=== PATIENT | male | born 1955 | race Caucasian/White ===

== ENCOUNTER 2016-08-10 17:33 | Emergency (ER) | payer OTHER ==
[2016-08-10 17:45] LABS: EOSINOPHIL (%) 3.2 % (0-5); EOSINOPHIL COUNT 0.2 K/uL (0-0.3); HEMATOCRIT 40.3 % (38.0-50.0); IMMATURE GRANULOCYTE (%) 0.8 % (0.0-0.7); IMMATURE GRANULOCYTE COUNT 0.5 K/uL; LYMPHOCYTE COUNT 2.6 K/uL (1.0-2.8); MCH 29.7 PG (29.0-34.0); MCHC 36.7 G/DL (30.0-36.0); MCV 80.9 FL (86-99); MEAN PLAT.VOLUME 9.6 uM^3 (9.0-12.4); MONOCYTE (%) 8.7 % (3-12); MONOCYTE COUNT 0.6 K/uL (0-0.8); NEUTROPHIL COUNT 2.8 K/uL (1.8-6.4); PLATELET COUNT 176 K/uL (156-360); RBC DIS.WIDTH-CV 12.4 % (11.8-14.6); RBC DIS.WIDTH-SD 35.4 % (39-53); RED BLOOD COUNT 4.98 M/uL (4.00-5.50); WHITE BLOOD COUNT 6.3 K/uL (4.1-10.2)
[2016-08-10 17:57] LABS: AMYLASE 72 IU/L (1-118); CHLORIDE 103 mEq/L (99-109); POTASSIUM 3.7 mEq/L (3.7-5.4); SODIUM 139 mEq/L (136-147)
[2016-08-10 17:59] LABS: GLUCOSE 160 mg/dL (70-99)
[2016-08-10 18:00] LABS: ANION GAP 12 MEQ/L (2-14)
[2016-08-10 18:02] LABS: SERUM ETHYL ALCOHOL < 10 mg/dL
[2016-08-10 18:03] LABS: UREA NITROGEN (BUN) 13 mg/dL (9-23)
[2016-08-10 18:05] LABS: LIPASE 78 U/L (1.0-51.0)
[2016-08-10 18:08] LABS: GFR ESTIMATE (CALCULATED) > 59 mL/min/
[2016-08-10 18:26] LABS: TROP-I INTERPRETATION NEGATIVE; TROPONIN-I < 0.01 ng/mL (0.0-0.30)
[2016-08-10 21:14] LABS: ADD MIUA? NO; BILIRUBIN NEGATIVE; BLOOD NEGATIVE; COLOR YELLOW ((YELLOW)); GLUCOSE (STRIP) NEGATIVE; KETONES NEGATIVE; LEUKOCYTES NEGATIVE; NITRITE NEGATIVE; PROTEIN (STRIP) NEGATIVE; SPECIFIC GRAVITY 1.033 (1.000-1.030); UCUL ADDED? NO; UROBILINOGEN 0.2 MG/DL (0.2-1.0)
[2016-08-10 21:29] LABS: AMPHETAMINE NEGATIVE (500 ng/mL); BARBITURATES NEGATIVE (200 ng/mL); BENZODIAZEPINES NEGATIVE (150 ng/mL); COCAINE NEGATIVE (150 ng/mL); INTERNAL CONTROLS VALID? YES; METHADONE NEGATIVE (200 ng/mL); METHAMPHETAMINE NEGATIVE (500 ng/mL); OPIATES (MORPHINE) NEGATIVE (100 ng/mL); OXYCODONE NEGATIVE (100 ng/mL); PHENCYCLIDINE NEGATIVE (25 ng/mL); PROPOXYPHENE NEGATIVE (300 ng/mL); THC CANNABINOIDS NEGATIVE (50 ng/mL); TRICYCLIC ANTIDEPRESSANTS NEGATIVE (300 ng/mL)
[2016-08-10] MEDS ORDERED: MOTRIN600 MG PO (22:29)
[2016-08-10] MEDS ORDERED: PERCOCET 5/31 TABLET PO (22:29)
== END 2016-08-10 23:02 | disposition home or self-care (01) ==
LOC: TRA 17:33
PROVIDERS: Emergency Medicine
DX: S20.219A Contusion of unspecified front wall of thorax, initial encounter (principal); S09.90XA Unspecified injury of head, initial encounter; S00.91XA Abrasion of unspecified part of head, initial encounter; V63.6XXA Passenger in heavy transport vehicle injured in collision with car, pick-up truck or van in traffic accident, initial encounter; E11.9 Type 2 diabetes mellitus without complications; I10 Essential (primary) hypertension
CPT/HCPCS: 70450; 71260; 72125; 72129; 72132; 73560; 74177; 80048; 81003; 82150; 83690; 84484; 85025; 86850; 86900; 86901; 93005; 99281; 99285; G0480; J3010